=== PATIENT | female | born 1965 | race Caucasian/White ===

== ENCOUNTER → 2016-04-10 | Outpatient (CLI) | payer OTHER ==
[~2016-04-10] MED LIST: /DULO30CA PO; ALBU17IN INH; ASPI1TAB PO; BACL10TA2 PO; DUONSOL INH; FLUT22IN INH; HYDR-3713 PO; HYDR25TA8 PO; LAMI25TA PO; LIDO5DIS EX; LYRI150C PO; MOXI1TAB PO; OMEP40CA2 PO; PARO20TA2 PO; PRED10TA PO; PULM0.5S INH; SOMA350T PO; TOPA200T6 PO; TOPI200T PO; TRAN7.5T PO; VICO5TAB PO; VITA400C29 PO; [UNRECOGNIZED DRUG - CODE] PO
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
== END | disposition home or self-care (01) ==
LOC: M RAD 14:05
PROVIDERS: ATTEND Orthopaedic Surgery
DX: M54.2 Cervicalgia (principal); M47.812 Spondylosis without myelopathy or radiculopathy, cervical region

== ENCOUNTER 2016-07-15 15:15 | Emergency (ER) | payer OTHER ==
[~2016-07-15] VITALS: Ht 162.6 cm; Wt 66.2 kg
[~2016-07-15 15:15] MED LIST changes: -PARO20TA2 PO; +PARO20TA3 PO; +[UNRECOGNIZED DRUG - CODE] PO; -[UNRECOGNIZED DRUG - CODE] PO
[2016-07-15] MEDS ORDERED: HYDR-3713 PO (15:32)
[2016-07-15] MEDS ORDERED: SPIR1CAP INH (15:32)
[2016-07-15] MEDS ORDERED: ALBU2TA PO (15:32)
[2016-07-15] MEDS ORDERED: META1TAB19 PO (15:32)
[2016-07-15] MEDS ORDERED: ADV500INH INH (15:32)
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
[2016-07-15] MEDS ORDERED: IBUPROFEN 600 MG TAB PO ONE (17:00)
[2016-07-15] MEDS ORDERED: NORCO, ANEXSIA 5/325MG TABLET (HYDROcodone/ACETAMINOPHEN) PO ONE (17:00)
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
[2016-07-15 17:39] VITALS: BP 138/86
== END 2016-07-15 17:39 | disposition home or self-care (01) ==
LOC: M ED 17:18
DX: S13.4XXA Sprain of ligaments of cervical spine, initial encounter (principal); S33.5XXA Sprain of ligaments of lumbar spine, initial encounter; S70.02XA Contusion of left hip, initial encounter; V43.52XA Car driver injured in collision with other type car in traffic accident, initial encounter; Y92.410 Unspecified street and highway as the place of occurrence of the external cause; J44.9 Chronic obstructive pulmonary disease, unspecified; M51.9 Unspecified thoracic, thoracolumbar and lumbosacral intervertebral disc disorder; F17.200 Nicotine dependence, unspecified, uncomplicated; Z79.899 Other long term (current) drug therapy; Z79.82 Long term (current) use of aspirin; Z79.51 Long term (current) use of inhaled steroids

== ENCOUNTER → 2016-10-08 | Outpatient (CLI) | payer OTHER ==
[~2016-10-08] MED LIST changes: +ADV500INH INH; +ALBU2TA PO; +META1TAB19 PO; +SPIR1CAP INH; -TOPA200T6 PO; +TOPA200T7 PO; +VITA-110 PO; -VITA400C29 PO
[2016-10-08 11:18] LABS: BASO % 0.5 % (0.0-1.0); EOS # 0.1 K/mm3 (0.0-0.50); EOS % 1.2 % (0.0-3.0); LYMPH # 3.2 K/mm3 (1.5-4.5); LYMPH % 47.5 % (24.0-44.0); MEAN CORPUSCULAR HGB CONC 32.9 g/dl (32.0-36.5); MEAN CORPUSCULAR VOLUME 97.1 fl (80.0-96.0); MONO # 0.2 K/mm3 (0.0-0.8); MONO % 3.8 % (0.0-5.0); NEUTROPHILS # 2.8 K/mm3 (1.8-7.7); NEUTROPHILS % 44.4 % (36.0-66.0); RED CELL DISTRIBUTION WIDTH 13.2 % (11.5-14.5); WHITE BLOOD COUNT 6.4 K/mm3 (4.0-10.0)
[2016-10-08 11:48] LABS: ALBUMIN 3.8 GM/DL (3.2-5.2); ALBUMIN/GLOBULIN RATIO 1.27 (1.00-1.93); ALKALINE PHOSPHATASE 90 U/L (45-117); ALT/SGPT 23 U/L (12-78); ANION GAP 4 MEQ/L (8-16); AST/SGOT 14 U/L (15-37); BILIRUBIN,TOTAL 0.2 MG/DL (0.2-1.0); BLOOD UREA NITROGEN 15 MG/DL (7-18); CARBON DIOXIDE LEVEL 29 MEQ/L (21-32); CHLORIDE LEVEL 105 MEQ/L (98-107); CHOLESTEROL LEVEL 267 MG/DL (<200); CREATININE FOR GFR 0.71 MG/DL (0.55-1.02); GLOMERULAR FILTRATION RATE > 60.0 (>51); GLUCOSE, FASTING 85 MG/DL (70-105); POTASSIUM SERUM 4.1 MEQ/L (3.5-5.1); SODIUM LEVEL 138 MEQ/L (136-145); TOTAL PROTEIN 6.8 GM/DL (6.4-8.2); TRIGLYCERIDES LEVEL 79 MG/DL (<150)
== END ==
LOC: M LAB 10:46
PROVIDERS: ATTEND Physician Assistant Medical
DX: E55.9 Vitamin D deficiency, unspecified (principal); E78.2 Mixed hyperlipidemia

== ENCOUNTER → 2017-07-31 | Outpatient (REF) | payer OTHER | LOC: M LABNEURO 15:05 | DX: G40.909 Epilepsy, unspecified, not intractable, without status epilepticus (principal); G89.29 Other chronic pain ==

== ENCOUNTER → 2018-07-28 | Outpatient (REF) | payer OTHER ==
[~2018-07-28] MED LIST changes: -/DULO30CA PO; -ASPI1TAB PO; +ASPI81TA26 PO; +CYMB1CAP5 PO; -META1TAB19 PO; +META400T PO; +PRED-351 PO; -PRED10TA PO
[2018-07-31 10:12] LABS: LAMOTRIGINE (LAMICTAL) 1.6 ug/mL (2.0-20.0); TOPIRAMATE LEVEL 12.7 ug/mL (2.0-25.0)
== END ==
LOC: M LABNEURO 13:56
PROVIDERS: ATTEND Physician Assistant Medical
DX: R56.9 Unspecified convulsions (principal)

== ENCOUNTER → 2018-08-06 | Outpatient (CLI) | payer OTHER ==
--- NOTE | 2018-08-06 15:32 | REP ---
Clinical: COPD . Comparison: 07/15/2016 . Technique: PA and lateral. Findings: Hyperinflation and mild chronic changes consistent with the given history of COPD. No focal consolidation, effusion, or pneumothorax. Mediastinum and cardiac silhouette are normal. Skeletal structures are intact. Impression: 1. COPD. No acute cardiopulmonary process appreciated. Electronically Signed by Esteban Duenas MD 08/06/2018 03:24 P
[2018-08-06 16:01] LABS: HEMATOCRIT 43.1 % (36.0-47.0); MEAN CORPUSCULAR HEMOGLOBIN 31.5 pg (27.0-33.0); MEAN CORPUSCULAR HGB CONC 32.5 g/dl (32.0-36.5); MEAN CORPUSCULAR VOLUME 97.1 fl (80.0-96.0); PLATELET COUNT, AUTOMATED 306 10^3/uL (150-450); RED BLOOD COUNT 4.44 10^6/uL (4.00-5.40)
[2018-08-06 16:24] LABS: HEMOGLOBIN A1c 5.4 %
[2018-08-06 16:39] LABS: ALBUMIN 3.8 GM/DL (3.2-5.2); ALT/SGPT 18 U/L (12-78); BILIRUBIN,TOTAL 0.3 MG/DL (0.2-1.0); BLOOD UREA NITROGEN 13 MG/DL (7-18); CALCIUM LEVEL 8.9 MG/DL (8.5-10.1); CARBON DIOXIDE LEVEL 29 MEQ/L (21-32); CHLORIDE LEVEL 106 MEQ/L (98-107); CHOLESTEROL LEVEL 202 MG/DL (<200); CHOLESTEROL RISK RATIO 3.482 (<5); CREATININE FOR GFR 0.65 MG/DL (0.55-1.30); GLOMERULAR FILTRATION RATE > 60.0 (>51); GLUCOSE, FASTING 85 MG/DL (70-100); HDL CHOLESTEROL 58 MG/DL (>40); LDL CHOLESTEROL 118 MG/DL (<100); NON-HDL-C 144 MG/DL; POTASSIUM SERUM 4.1 MEQ/L (3.5-5.1); SODIUM LEVEL 140 MEQ/L (136-145); TOTAL PROTEIN 6.6 GM/DL (6.4-8.2); TRIGLYCERIDES LEVEL 128 MG/DL (<150)
[2018-08-06 18:29] LABS: TOTAL 25(OH) VITAMIN D 26.5 NG/ML (30.0-100.0)
== END ==
LOC: M LAB 14:39
PROVIDERS: ATTEND Family Medicine
DX: J44.9 Chronic obstructive pulmonary disease, unspecified (principal); D64.9 Anemia, unspecified; R53.83 Other fatigue

== ENCOUNTER 2020-07-09 19:43 | Emergency (ER) | payer OTHER ==
[~2020-07-09] VITALS: Ht 162.6 cm; Wt 44.0 kg
[~2020-07-09 19:43] MED LIST changes: -OMEP40CA2 PO; +OMEP40CA97 PO
[2020-07-09] MEDS ORDERED: MONI4CRE3 PV (19:54)
[2020-07-09] MEDS ORDERED: IPRATROPIUM 0.5MG/ALBUTEROL 2.5MG INH SOL UD 3ML (DUONEB) NEB ONE (20:20)
[2020-07-09] MEDS ORDERED: methylPREDNISolone 125MG 2ML VIAL IV ONE (20:20)
--- NOTE | 2020-07-09 20:33 | REPVR ---
PROCEDURE INFORMATION: Exam: CT Head Without Contrast Exam date and time: 07/09/2020 8:20 PM Age: 54 years old Clinical indication: Pain; Headache; Additional info: Left-sided numbness TECHNIQUE: Imaging protocol: Computed tomography of the head without contrast. Radiation optimization: All CT scans at this facility use at least one of these dose optimization techniques: automated exposure control; mA and/or kV adjustment per patient size (includes targeted exams where dose is matched to clinical indication); or iterative reconstruction. Other technique: STROKE PROTOCOL was implemented. COMPARISON: CT Head without contrast 07/15/2016 3:55 PM FINDINGS: Brain: Normal. No hemorrhage. Unremarkable white matter. No mass effect. Cerebral ventricles: No ventriculomegaly. Bones/joints: Unremarkable. No acute fracture. Paranasal sinuses: Visualized sinuses are unremarkable. No fluid levels. Mastoid air cells: Visualized mastoid air cells are well aerated. Soft tissues: Unremarkable. IMPRESSION: 1. Negative noncontrast head CT without change from 07/15/2016. 2. [place] Stroke Program Early CT Score (ASPECTS) = 10/10. Electronically signed by: Dash Robbins On 07/09/2020 20:33:07 PM
--- NOTE | 2020-07-09 20:42 | REPVR ---
PROCEDURE INFORMATION: Exam: XR Chest Exam date and time: 07/09/2020 8:33 PM Age: 54 years old Clinical indication: Other: CVA TECHNIQUE: Imaging protocol: XR of the chest. Views: 1 view. COMPARISON: CR Chest, 2 view PA, Lat 08/06/2018 3:13 PM FINDINGS: Lungs: Pulmonary hyperinflation with increased lucency of lung. No focal infiltrates. Pleural spaces: Unremarkable. No pleural effusion. No pneumothorax. Heart/Mediastinum: Unremarkable. No cardiomegaly. Bones/joints: Unremarkable. Soft tissues: Nipple shadows are noted. IMPRESSION: Stable chest since 08/06/2018 with suggestion of some degree of COPD. No acute interval process is identified. Electronically signed by: Dash Robbins On 07/09/2020 20:41:44 PM
[2020-07-09 20:43] LABS: BASO % 0.4 % (0.0-1.0); EOS # 0.1 10^3/uL (0.0-0.5); EOS % 0.7 % (0.0-3.0); HEMATOCRIT 47.7 % (36.0-47.0); HEMOGLOBIN 15.9 g/dl (12.0-15.5); LYMPH # 3.2 10^3/uL (1.5-5.0); LYMPH % 35.5 % (24.0-44.0); MEAN CORPUSCULAR HEMOGLOBIN 32.9 pg (27.0-33.0); MEAN CORPUSCULAR HGB CONC 33.3 g/dl (32.0-36.5); MEAN CORPUSCULAR VOLUME 98.6 fl (80.0-96.0); MONO # 0.7 10^3/uL (0.0-0.8); MONO % 7.6 % (2.0-8.0); NEUTROPHILS # 5.1 10^3/uL (1.5-8.5); NEUTROPHILS % 55.5 % (36.0-66.0); PLATELET COUNT, AUTOMATED 227 10^3/uL (150-450); RED BLOOD COUNT 4.84 10^6/uL (4.00-5.40); WHITE BLOOD COUNT 9.1 10^3/uL (4.0-10.0)
[2020-07-09 21:01] VITALS: BP 120/75
[2020-07-09 21:01] LABS: INR 0.94; PARTIAL THROMBOPLASTIN TIME 31.1 SECONDS (24.2-38.5); PROTHROMBIN TIME 12.7 SECONDS (12.5-14.3)
[2020-07-09 21:20] LABS: BLOOD UREA NITROGEN 16 MG/DL (7-18); CALCIUM LEVEL 9.8 MG/DL (8.5-10.1); CARBON DIOXIDE LEVEL 35 MEQ/L (21-32); CHLORIDE LEVEL 103 MEQ/L (98-107); CK-MB VALUE MASS 4.1 NG/ML (<3.6); CPK CREATINE PHOSPHOKINASE 51 U/L (26-192); CREATININE FOR GFR 0.44 MG/DL (0.55-1.30); GLOMERULAR FILTRATION RATE > 60.0 (>51); GLUCOSE, FASTING 86 MG/DL (70-100); MB/CK RELATIVE INDEX 8.04 (< OR =4); POTASSIUM SERUM 4.1 MEQ/L (3.5-5.1); SODIUM LEVEL 141 MEQ/L (136-145); TROPONIN I < 0.02 NG/ML (< 0.10)
[2020-07-09] MEDS ORDERED: DOXYCYCLINE HYCLATE 100MG TABLET PO ONE (21:20)
[2020-07-09] MEDS ORDERED: cefTRIAXone SOD 1 GM in D5W MINI-BAG PLUS 50 ML IV ONE (21:20)
[2020-07-09] MEDS ORDERED: VENTAER INH (21:59)
[2020-07-09] MEDS ORDERED: PRED20TA PO (21:59)
[2020-07-09] MEDS ORDERED: DOXY100C37 PO (21:59)
--- NOTE | 2020-07-09 22:11 | ECGEPIP ---
[facility] - ED Test Date: 2020-07-09 Pat Name: LEANNE BISWAS Department: Room: - Gender: Female [employer] Supervisor: BABAK : [id number] Requested By: SANGEETA CARVER Order Number: [id number] Reading MD: Nickie Larsen Measurements Intervals [place] Rate: 71 P: 82 AK: 120 QRS: 147 QRSD: 74 T: 84 QT: 390 QTc: 423 Interpretive Statements Normal sinus rhythm Right axis deviation Pulmonary disease pattern possible anteroseptal infarct Electronically Signed on 07-09-2020 22:10:44 EDT by Nickie Larsen
[2020-07-09 22:25] LABS: RSV AMPLIFICATION NEGATIVE (NEGATIVE)
[2020-07-09 22:29] VITALS: BP 129/72
== END 2020-07-09 22:32 | disposition home or self-care (01) ==
LOC: M ED 19:43
DX: J44.1 Chronic obstructive pulmonary disease with (acute) exacerbation (principal); G45.9 Transient cerebral ischemic attack, unspecified; R56.9 Unspecified convulsions; M81.0 Age-related osteoporosis without current pathological fracture; M62.50 Muscle wasting and atrophy, not elsewhere classified, unspecified site; M79.7 Fibromyalgia; Z86.73 Personal history of transient ischemic attack (TIA), and cerebral infarction without residual deficits; F17.200 Nicotine dependence, unspecified, uncomplicated; Z79.82 Long term (current) use of aspirin; Z79.899 Other long term (current) drug therapy
CPT/HCPCS: 70450; 71045; 80048; 82550; 82553; 83605; 85025; 85610; 85730; 87040; 87631; 93005; 93041; 94640; 94760; 96374; 96375; 99285; J0696; J2930